=== PATIENT | female | born 1995 | race Caucasian/White ===

== ENCOUNTER 2024-01-27 12:30 | Outpatient (CLI) | payer MEDICAID, SELFPAY | END 2024-01-27 12:31 | disposition home or self-care (01) | LOC: NFLDREF 01-29 18:19 | PROVIDERS: PCP Family Medicine; Referring Provider Family Medicine; Visit Provider Family Medicine | DX: N39.0 Urinary tract infection, site not specified (principal) | CPT/HCPCS: 87086 ==

== ENCOUNTER 2024-09-07 13:54 | Outpatient (CLI) | payer BC, SELFPAY | END 2024-09-07 13:55 | disposition home or self-care (01) | PROVIDERS: PCP Family Medicine | DX: K50.90 Crohn's disease, unspecified, without complications (principal) | CPT/HCPCS: 85651; 86140 ==